=== PATIENT | male | born 1955 | race Caucasian/White ===

== ENCOUNTER 2016-11-09 13:54 | Inpatient (IN) | payer BC ==
[~2016-11-09] VITALS: Ht 175.3 cm; Wt 106.1 kg
[2016-11-09] VITALS (7 sets, daily range): BP systolic 97–117; BP diastolic 53–65
[2016-11-09] MEDS ORDERED: ESOM40CA PO (15:35)
[2016-11-09] MEDS ORDERED: TAMS0.4C2 PO (15:35)
[2016-11-09] MEDS ORDERED: POTA20TA82 PO (15:35)
[2016-11-09] MEDS ORDERED: ASPI81TA2 PO (15:35)
[2016-11-09] MEDS ORDERED: ATOR40TA59 PO (15:35)
[2016-11-09] MEDS ORDERED: FURO40TA4 PO (15:35)
[2016-11-09] MEDS ORDERED: MOME17SP NS (15:35)
[2016-11-09] MEDS ORDERED: LISI2.5T PO (15:35)
[2016-11-09] MEDS ORDERED: SENN1TAB7 PO (15:35)
[2016-11-09] MEDS ORDERED: CARV12.52 PO (15:35)
[2016-11-09] MEDS ORDERED: HYDROcodone/APAP 5/325MG 1 TAB TABLET PO PRN (16:00)
[2016-11-09] MEDS ORDERED: 0.9 % SODIUM CHLORIDE 10 ML DISP.SYRIN. IV PRN (16:00)
[2016-11-09] MEDS: CARVEDILOL 12.5 MG TABLET. PO SCH (17:00)
[2016-11-09] MEDS: FUROSEMIDE 40 MG/4 ML VIAL. IVP SCH (17:03)
--- NOTE | 2016-11-09 17:09 | PDOC2 ---
CARDIAC CONSULT DATE OF CONSULT Date of Consult DATE: 11/09/16 TIME: 16:20 REASON FOR CONSULT Reason for Consult: Possible CHF, SOA REFERRING PHYSICIAN Referring Physician: Appl SOURCE Source: Caregiver (spouse), Chart review, Patient HISTORY OF PRESENT ILLNESS HISTORY OF PRESENT ILLNESS This is a pleasant 61 yo male admitted for complains of increasing leg swelling and mild SOA. Reports that >2 weeks ago he and his have noticed that his legs have become more edematous. He has been drinking about 2-3 liters approximate of fluids daily, also has been controlling his salt intake but unable to to tell me how much, has been having difficulty urinating and was noted recently with urinary retention. Denies any changes in activity tolerance but has noted to be slightly SOA that usual. No complains of any chest pain, palpitations. Positive for orthopnea, PND. His lasix has been adjusted and increased in the last 2 weeks to get ahead of his symptoms but finally went to his PCP and was told to get admitted to the hospital prompting direct admission today. He has been compliant with his medications but continues to smoke tobacco. In addition he is not on any COPD regimen but was told in the past that he has mild COPD his cough has been increasing but mainly due to upper respiratory congestion likely from uncontrolled allergies based from spouse with increasing clear to white sputum and today it was greenish. No fever or chills. He has not been checking his BP or checking his weight. PAST MEDICAL HISTORY Cardiovascular: CAD, CHF (cardiomyopathy), HTN Pulmonary: COPD CENTRAL NERVOUS SYSTEM: Other (No pertinent history) GI: GERD Heme/Onc: No pertinent hx Hepatobiliary: No pertinent hx Psych: No pertinent hx Musculoskeletal: low back pain, Osteoarthritis, Other (meniscus tear) Rheumatologic: No pertinent hx Infectious disease: No pertinent hx ENT: Allergic Rhinitis Renal/: Benign prostatic enlarg. Endocrine: No pertinent hx Dermatology: No pertinent hx PAST SURGICAL HISTORY Past Surgical History: Pacemaker (AICD medtronic placed 6 months after CABG), Arthroscopy (bilateral meniscus repair), CABG (x3 3 yrs ago with graft sites to left leg), Hernia Repair, Other (vasectomy reversal) FAMILY HISTORY Family History: Diabetes, Other (strong family hx of clotting disorderes, DVT/ PE---- he was tested during his CABG w/u and negative for inherent clotting disorders) SOCIAL HISTORY Smoke: <1 pack per day (at prime used to smoke 2 ppd total >35 pk yr) ALCOHOL: none Drugs: None Lives: with Family ALLERGIES ALLERGIES: Coded Allergies: No Known Drug Allergies (Unverified , 11/09/16) ROS Review of System 14 point ROS evaluated with pertinent positives noted per HPI PHYSICAL EXAM General: Alert, Oriented X3, Cooperative, No acute distress HEENT: Atraumatic, Mucous membr. moist/pink Lungs: Other (left basilar crackles) Heart: Regular rate, Normal S1, Normal S2, Other (distant heart sounds) Extremities: No cyanosis, Other (2+ bilateral LE pitting edema) Skin: No breakdown, No significant lesion Neuro: Normal speech, Sensation intact Psych/Mental Status: Mental status NL, Mood NL MUSCULOSKELETAL: Osteoarthritic changes both hands VITALS VITALS Vital Signs Date Time Temp Pulse Resp B/P (MAP) Pulse Ox O2 Delivery O2 Flow Rate FiO2 11/09/16 15:28 98.3 91 20 99/58 (72) 97 Room Air 98.3 ASSESSMENT/PLAN ASSESSMENT/PLAN 1. Acute on chronic systolic CHF: orthopnea otherwise not in distress 2. ICM: AICD Medtronic in place 3. CAD: CABG x3 3 yrs ago, done in [facility], follow with Dr. Spear seen last 06/2016. CP free. 4. Suspect GEOVANNY with associated urinary retention 5. Mild COPD exacerbation 6. Strong suspicion of LORENA: positive for apnea and snoring per with physical features. 7. HTN: low end 8. HLP Recommendations 1. Multiple labs pending 2. CXR, TTE, EKG 3. Cardiac enzymes 4. Continue secondary prevention and home regimen per BP tolerance. Lasix therapy. and martinez now in place 5. 2 L FR, smoking cessation 6. Will interrogate device and will note thoracic impedance 7. Obtain [facility] records. 8. Discussed lifestyle modifications, including weight loss, diet, encouraged home BP and weight monitoring 9. Place on tele monitor. 10 Will need LORENA workup as outpt, further recommendation pending test results Problems: CELESTINA SO APRN November 09, 2016 17:08
[2016-11-09 18:34] LABS: BILIRUBIN,URINE NEGATIVE (NEG); GLUCOSE,URINE NEGATIVE (NEG); NITRITE,URINE NEGATIVE (NEG); PH,URINE 6.5; PROTEIN,URINE NEGATIVE (NEG-TRACE); UROBILINOGEN,URINE 0.2 mg/dL (0.2 mg/dL)
[2016-11-09 18:41] LABS: BACTERIA,URINE 0 /HPF (0-FEW); WBC,URINE 0 /HPF (0-4)
[2016-11-09 18:55] LABS: BASO # 0.1 x10^3/uL (0.0-0.2); BASO % 1 % (0-3); EOS % 2 % (0-3); HEMATOCRIT 21.6 % (39.0-53.0); LYMPH # 3.6 x10^3/uL (1.0-4.8); LYMPH % 24 % (24-48); MEAN CORPUSCULAR HEMOGLOBIN 16 pg (25-35); MEAN CORPUSCULAR HGB CONC 28 g/dL (31-37); MEAN CORPUSCULAR VOLUME 58 fL (79-100); MONO % 7 % (0-9); NEUT % 67 % (31-73); PLATELET COUNT 453 x10^3/uL (140-400); RED BLOOD COUNT 3.76 x10^6/uL (4.30-5.70); RED CELL DISTRIBUTION WIDTH 22.4 % (11.5-14.5)
[2016-11-09 19:09] LABS: ALBUMIN 3.1 g/dL (3.4-5.0); ALBUMIN/GLOBULIN RATIO 0.8 (1.0-1.7); CALCIUM 8.4 mg/dL (8.5-10.1); GFR 76.5; POTASSIUM 3.8 mmol/L (3.5-5.1); TOTAL BILIRUBIN 0.6 mg/dL (0.2-1.0); TOTAL PROTEIN 6.9 g/dL (6.4-8.2)
[2016-11-09] MEDS ORDERED: IVAB5TAB PO (19:21)
[2016-11-09 19:40] LABS: HEMATOCRIT 21.7 % (39.0-53.0)
[2016-11-09 19:49] LABS: ANISOCYTOSIS MOD; HYPOCHROMIA MARKED; MICROCYTOSIS MARKED; PLT ESTIMATE INCREASED (ADEQUATE); POIKILOCYTOSIS SLIGHT
[2016-11-09 19:51] LABS: OVALOCYTES FEW; SCHISTOCYTES OCC; TEAR DROP CELLS OCC
[2016-11-09 19:52] LABS: POLYCHROMASIA SLIGHT
[2016-11-09] MEDS: SENNOSIDES/DOCUSATE 8.6/50MG TABLET. PO SCH (20:35)
--- NOTE | 2016-11-09 20:59 | PDOC ---
GENERAL General: see dictated H&P. Problems: VITAL SIGNS Vital Signs: Vital Signs Date Time Temp Pulse Resp B/P (MAP) Pulse Ox O2 Delivery O2 Flow Rate FiO2 11/09/16 19:44 98.2 94 18 97/53 (68) 95 Room Air 98.2 ALLERGIES Allergies: Allergies Coded Allergies Type Severity Reaction Last Updated Verified No Known Drug Allergies 11/09/16 No MEDS Medications: Current Medications Medications (Trade) Dose Ordered Sig/Edwina Start Time Stop Time Status Last Admin Dose Admin Acetaminophen/ Hydrocodone Bitart (Lortab 5/325) 1 tab PRN Q4HRS PRN 11/09/16 16:00 Aspirin (Children'S Aspirin) 81 mg DAILYWBKFT 11/10/16 08:00 Atorvastatin Calcium (Lipitor) 40 mg QHS 11/09/16 21:00 11/09/16 20:35 40 MG Carvedilol (Coreg) 12.5 mg BIDWMEALS 11/09/16 17:00 Fluticasone Propionate (Flonase) 2 spray DAILY 11/10/16 09:00 Furosemide (Lasix) 40 mg BID94 11/09/16 16:30 11/09/16 17:03 40 MG Lisinopril (Prinivil) 2.5 mg DAILY 11/10/16 09:00 Pantoprazole Sodium (Protonix) 40 mg DAILYAC 11/10/16 07:30 Potassium Chloride (Klor-Con) 20 meq DAILYWBKFT 11/10/16 08:00 Senna/Docusate Sodium (Senna Plus) 2 tab BID 11/09/16 21:00 11/09/16 20:35 2 TAB Sodium Chloride (Normal Saline Flush) 3 ml PRN DAILY PRN 11/09/16 16:00 Tamsulosin HCl (Flomax) 0.4 mg DAILY 11/10/16 09:00 LAB Lab: Laboratory Tests Test 11/09/16 18:00 11/09/16 18:40 11/09/16 19:30 Urine Collection Type Unknown Urine Color Yellow Urine Clarity Clear Urine pH 6.5 Urine Specific [place] 1.010 Urine Protein Negative mg/dL (NEG-TRACE) Urine Glucose (UA) Negative mg/dL (NEG) Urine Ketones (Stick) Negative mg/dL (NEG) Urine Blood Small (NEG) Urine Nitrite Negative (NEG) Urine Bilirubin Negative (NEG) Urine Urobilinogen Dipstick 0.2 mg/dL (0.2 mg/dL) Urine Leukocyte Esterase Negative (NEG) Urine RBC 11-20 /HPF (0-2) Urine WBC 0 /HPF (0-4) Urine Squamous Epithelial Cells None /LPF Urine Bacteria 0 /HPF (0-FEW) Urine Hyaline Casts Few /HPF Urine Mucus Slight /LPF White Blood Count 15.0 x10^3/uL (4.0-11.0) Red Blood Count 3.76 x10^6/uL (4.30-5.70) Hemoglobin 6.0 g/dL (13.0-17.5) 6.0 g/dL (13.0-17.5) Hematocrit 21.6 % (39.0-53.0) 21.7 % (39.0-53.0) Mean Corpuscular Volume 58 fL (79-100) Mean Corpuscular Hemoglobin 16 pg (25-35) Mean Corpuscular Hemoglobin Concent 28 g/dL (31-37) 28 g/dL (31-37) Red Cell Distribution Width 22.4 % (11.5-14.5) Platelet Count 453 x10^3/uL (140-400) Neutrophils (%) (Auto) 67 % (31-73) Lymphocytes (%) (Auto) 24 % (24-48) Monocytes (%) (Auto) 7 % (0-9) Eosinophils (%) (Auto) 2 % (0-3) Basophils (%) (Auto) 1 % (0-3) Neutrophils # (Auto) 10.1 x10^3uL (1.8-7.7) Lymphocytes # (Auto) 3.6 x10^3/uL (1.0-4.8) Monocytes # (Auto) 1.0 x10^3/uL (0.0-1.1) Eosinophils # (Auto) 0.2 x10^3/uL (0.0-0.7) Basophils # (Auto) 0.1 x10^3/uL (0.0-0.2) Platelet Estimate Increased (ADEQUATE) Giant Platelets Polychromasia Slight Hypochromasia Marked Poikilocytosis Slight Anisocytosis Mod Microcytosis Marked Tear Drop Cells Occ Ovalocytes Few Schistocytes Occ Sodium Level 140 mmol/L (136-145) Potassium Level 3.8 mmol/L (3.5-5.1) Chloride Level 102 mmol/L (98-107) Carbon Dioxide Level 28 mmol/L (21-32) Anion Gap 10 (6-14) Blood Urea Nitrogen 15 mg/dL (8-26) Creatinine 1.0 mg/dL (0.7-1.3) Estimated GFR (Cockcroft-Gault) 76.5 BUN/Creatinine Ratio 15 (6-20) Glucose Level 178 mg/dL (70-99) Calcium Level 8.4 mg/dL (8.5-10.1) Magnesium Level 1.8 mg/dL (1.8-2.4) Total Bilirubin 0.6 mg/dL (0.2-1.0) Aspartate Amino Transf (AST/SGOT) 14 U/L (15-37) Alanine Aminotransferase (ALT/SGPT) 21 U/L (16-63) Alkaline Phosphatase 163 U/L (46-116) Total Protein 6.9 g/dL (6.4-8.2) Albumin 3.1 g/dL (3.4-5.0) Albumin/Globulin Ratio 0.8 (1.0-1.7) Thyroid Stimulating Hormone (TSH) 1.364 uIU/mL (0.358-3.74) MAGGIE FRIAS MD November 09, 2016 20:59
[2016-11-09] MEDS ORDERED: ATORVASTATIN CALCIUM 40 MG TABLET. PO SCH (21:00)
[2016-11-10] VITALS (14 sets, daily range): BP systolic 93–131; BP diastolic 47–67
--- NOTE | 2016-11-10 00:54 | HP ---
ADMIT DATE: 11/09/2016 CHIEF COMPLAINT AND HISTORY OF PRESENT ILLNESS: This is a 61-year-old white male who is followed in our office. The patient was seen on the day prior to admission, felt to be in congestive heart failure and was having difficulty urinating, was catheterized in the office with 1200 mL return. He refused admission and his Lasix was increased up to 80 mg and was instructed to double his Flomax from 0.4 to 0.8 and to follow up the following day. On the following day, the patient had lost a pound, had been able to urinate, he ____ adequately overnight, but was having troubles again, still short of breath and bibasilar crackles, clinically had congestive heart failure. He is known to have cardiomyopathy with an ICD and the patient was admitted to the hospital ____ to deal with apparent congestive heart failure ____ urinary retention. PAST MEDICAL HISTORY: Remarkable for CABG in 2013 done in [facility] and has a history of ischemic cardiomyopathy, coronary artery disease, arthritis, ICD placement, systolic heart failure as well as BPH. MEDICATIONS: Include aspirin 81 mg daily, Lipitor 40 daily, carvedilol 12.5 b.i.d., Nexium 40 daily, furosemide 40 mg daily, lisinopril 1 tablet 2.5 daily, Nasonex nasal spray 2 sprays each nostril daily, potassium chloride 20 mEq daily, Senokot-S 8.6/50 mg 2 tablets by mouth twice a day and tamsulosin or Flomax was just increased to 0.8 from 0.4 daily. ALLERGIES: Has no known drug allergies. SOCIAL HISTORY: Noncontributory. FAMILY HISTORY: Noncontributory. REVIEW OF SYSTEMS: As mentioned above. PHYSICAL EXAMINATION: GENERAL: He is a well-developed, well-nourished white male, who appears relatively comfortable at rest. VITAL SIGNS: Revealed a blood pressure of 100/50. He is afebrile. HEAD, EYES, EARS, NOSE AND THROAT: Unremarkable. NECK: Supple without bruit, thyromegaly. CHEST: Reveals bibasilar crackles. HEART: Regular rate and rhythm without S3, S4 or murmur. ABDOMEN: Soft, nontender without hepatosplenomegaly or mass. EXTREMITIES: Revealed 2+ edema. NEUROLOGIC: He is intact. IMPRESSION: Congestive heart failure and urinary retention as described above in a patient with multiple other problems listed above. PLAN: The patient has been admitted. Bladder scan will be done with catheter placement as necessary. Labs will be checked, chest x-ray, echocardiogram and EKG. Cardiology will be consulted and the patient will be monitored, diuresed, managed and treated appropriately. MAGGIE FRIAS MD DR: EUGENE/thuan JOB#: [id number] / [id number]
[2016-11-10] MEDS ORDERED: ASPIRIN CHEWABLE 81 MG TABLET. PO SCH (08:00)
[2016-11-10] MEDS: CARVEDILOL 12.5 MG TABLET. PO SCH ×2 (08:00→16:42)
[2016-11-10] MEDS: FLUTICASONE 50MCG/NASAL SPRAY 16GM BOTTLE. NS SCH (08:11)
[2016-11-10] MEDS: FUROSEMIDE 40 MG/4 ML VIAL. IVP SCH (08:12)
[2016-11-10] MEDS: PANTOPRAZOLE 40 MG TABLET.DR. PO SCH (08:12)
[2016-11-10] MEDS: LISINOPRIL 2.5 MG TABLET PO SCH (08:13)
[2016-11-10] MEDS: POTASSIUM CHLORIDE 20 MEQ TABLET.ER. PO SCH (08:14)
[2016-11-10] MEDS: SENNOSIDES/DOCUSATE 8.6/50MG TABLET. PO SCH ×2 (08:15→20:45)
--- NOTE | 2016-11-10 08:20 | RAD ---
Chest, 2 views, 11/09/2016: History: Shortness of breath, congestive heart failure. No previous chest radiographs are available at this time for comparison purposes. There has been a previous median sternotomy. A left-sided transvenous pacemaker is in place with a single lead extending into the right ventricle. The heart is mildly enlarged. The pulmonary vascularity is within normal limits. No pulmonary infiltrates are seen. There is no evidence of pleural fluid. IMPRESSION: 1. Mild cardiomegaly. 2. No acute cardiopulmonary abnormality is detected.
[2016-11-10 08:23] LABS: BASO # 0.1 x10^3/uL (0.0-0.2); BASO % 1 % (0-3); EOS % 2 % (0-3); HEMATOCRIT 23.2 % (39.0-53.0); LYMPH # 2.4 x10^3/uL (1.0-4.8); LYMPH % 17 % (24-48); MEAN CORPUSCULAR HEMOGLOBIN 17 pg (25-35); MEAN CORPUSCULAR HGB CONC 29 g/dL (31-37); MEAN CORPUSCULAR VOLUME 59 fL (79-100); MONO % 7 % (0-9); NEUT % 73 % (31-73); PLATELET COUNT 437 x10^3/uL (140-400); RED BLOOD COUNT 3.91 x10^6/uL (4.30-5.70); RED CELL DISTRIBUTION WIDTH 25.6 % (11.5-14.5); WHITE BLOOD COUNT 14.2 x10^3/uL (4.0-11.0)
[2016-11-10 08:41] LABS: HDLC 18 mg/dL (40-60); HEMOGLOBIN 6.7 g/dL (13.0-17.5); TRIGLYCERIDES 131 mg/dL (0-150)
[2016-11-10] MEDS ORDERED: TAMSULOSIN 0.4 MG CAP.ER.24H. PO SCH (09:00)
[2016-11-10 09:02] LABS: CALCIUM 8.3 mg/dL (8.5-10.1); CREATININE 0.8 mg/dL (0.7-1.3); GFR 98.9; MAGNESIUM 1.9 mg/dL (1.8-2.4); POTASSIUM 3.9 mmol/L (3.5-5.1)
[2016-11-10 09:05] LABS: CHOLESTEROL < 50 mg/dL (0-200); NON-HDL CHOLESTEROL 32 mg/dL (0-129)
[2016-11-10 09:16] LABS: % SAT IRON 9 % (15-34); IRON,SERUM 45 ug/dL (65-175)
--- NOTE | 2016-11-10 10:36 | PDOC ---
PROGRESS NOTES Subjective Subjective Pt. with urinary retention Objective Objective Vital Signs Date Time Temp Pulse Resp B/P (MAP) Pulse Ox O2 Delivery O2 Flow Rate FiO2 11/10/16 08:13 91 107/47 11/10/16 08:00 Room Air 11/10/16 07:22 99.3 20 94 99.3 Intake and Output 11/10/16 07:00 Intake Total 2264 ml Output Total 2950 ml Balance -686 ml Intake Oral 1700 ml Blood Product IV Normal Saline Flush 564 ml Output Urine Total 2950 ml Physical Exam Physical Exam martinez in place urine clear 1200 cc in bladder at time of martinez placement Plan Plan of Care Keep martinez in place flomax to BID Follow up with regular urologist Dr. Carlos Olivarez of [facility] in next 1-2 weeks for voiding trial Comment Review of Relevant I have reviewed the following items rui (where applicable) has been applied. Labs Laboratory Tests Test 11/09/16 18:00 11/09/16 18:40 11/09/16 19:30 11/10/16 07:20 Urine Collection Type Unknown Urine Color Yellow Urine Clarity Clear Urine pH 6.5 Urine Specific [place] 1.010 Urine Protein Negative mg/dL (NEG-TRACE) Urine Glucose (UA) Negative mg/dL (NEG) Urine Ketones (Stick) Negative mg/dL (NEG) Urine Blood Small (NEG) Urine Nitrite Negative (NEG) Urine Bilirubin Negative (NEG) Urine Urobilinogen Dipstick 0.2 mg/dL (0.2 mg/dL) Urine Leukocyte Esterase Negative (NEG) Urine RBC 11-20 /HPF (0-2) Urine WBC 0 /HPF (0-4) Urine Squamous Epithelial Cells None /LPF Urine Bacteria 0 /HPF (0-FEW) Urine Hyaline Casts Few /HPF Urine Mucus Slight /LPF White Blood Count 15.0 x10^3/uL (4.0-11.0) 14.2 x10^3/uL (4.0-11.0) Red Blood Count 3.76 x10^6/uL (4.30-5.70) 3.91 x10^6/uL (4.30-5.70) Hemoglobin 6.0 g/dL (13.0-17.5) 6.0 g/dL (13.0-17.5) 6.7 g/dL (13.0-17.5) Hematocrit 21.6 % (39.0-53.0) 21.7 % (39.0-53.0) 23.2 % (39.0-53.0) Mean Corpuscular Volume 58 fL (79-100) 59 fL (79-100) Mean Corpuscular Hemoglobin 16 pg (25-35) 17 pg (25-35) Mean Corpuscular Hemoglobin Concent 28 g/dL (31-37) 28 g/dL (31-37) 29 g/dL (31-37) Red Cell Distribution Width 22.4 % (11.5-14.5) 25.6 % (11.5-14.5) Platelet Count 453 x10^3/uL (140-400) 437 x10^3/uL (140-400) Neutrophils (%) (Auto) 67 % (31-73) 73 % (31-73) Lymphocytes (%) (Auto) 24 % (24-48) 17 % (24-48) Monocytes (%) (Auto) 7 % (0-9) 7 % (0-9) Eosinophils (%) (Auto) 2 % (0-3) 2 % (0-3) Basophils (%) (Auto) 1 % (0-3) 1 % (0-3) Neutrophils # (Auto) 10.1 x10^3uL (1.8-7.7) 10.5 x10^3uL (1.8-7.7) Lymphocytes # (Auto) 3.6 x10^3/uL (1.0-4.8) 2.4 x10^3/uL (1.0-4.8) Monocytes # (Auto) 1.0 x10^3/uL (0.0-1.1) 1.0 x10^3/uL (0.0-1.1) Eosinophils # (Auto) 0.2 x10^3/uL (0.0-0.7) 0.2 x10^3/uL (0.0-0.7) Basophils # (Auto) 0.1 x10^3/uL (0.0-0.2) 0.1 x10^3/uL (0.0-0.2) Platelet Estimate Increased (ADEQUATE) Giant Platelets Polychromasia Slight Hypochromasia Marked Poikilocytosis Slight Anisocytosis Mod Microcytosis Marked Tear Drop Cells Occ Ovalocytes Few Schistocytes Occ Sodium Level 140 mmol/L (136-145) 142 mmol/L (136-145) Potassium Level 3.8 mmol/L (3.5-5.1) 3.9 mmol/L (3.5-5.1) Chloride Level 102 mmol/L (98-107) 104 mmol/L (98-107) Carbon Dioxide Level 28 mmol/L (21-32) 27 mmol/L (21-32) Anion Gap 10 (6-14) 11 (6-14) Blood Urea Nitrogen 15 mg/dL (8-26) 13 mg/dL (8-26) Creatinine 1.0 mg/dL (0.7-1.3) 0.8 mg/dL (0.7-1.3) Estimated GFR (Cockcroft-Gault) 76.5 98.9 BUN/Creatinine Ratio 15 (6-20) Glucose Level 178 mg/dL (70-99) 129 mg/dL (70-99) Calcium Level 8.4 mg/dL (8.5-10.1) 8.3 mg/dL (8.5-10.1) Magnesium Level 1.8 mg/dL (1.8-2.4) 1.9 mg/dL (1.8-2.4) Total Bilirubin 0.6 mg/dL (0.2-1.0) Aspartate Amino Transf (AST/SGOT) 14 U/L (15-37) Alanine Aminotransferase (ALT/SGPT) 21 U/L (16-63) Alkaline Phosphatase 163 U/L (46-116) Total Protein 6.9 g/dL (6.4-8.2) Albumin 3.1 g/dL (3.4-5.0) Albumin/Globulin Ratio 0.8 (1.0-1.7) Thyroid Stimulating Hormone (TSH) 1.364 uIU/mL (0.358-3.74) Iron Level 45 ug/dL (65-175) Total Iron Binding Capacity 482 ug/dL (250-450) Iron Saturation 9 % (15-34) Troponin I Quantitative < 0.017 ng/mL (0.000-0.055) GQ-Fhy-D-Type Natriuretic Peptide 449 pg/mL (0-124) Triglycerides Level 131 mg/dL (0-150) Cholesterol Level < 50 mg/dL (0-200) LDL Cholesterol, Calculated mg/dL (0-100) VLDL Cholesterol, Calculated mg/dL (0-40) Non-HDL Cholesterol Calculated 32 mg/dL (0-129) HDL Cholesterol 18 mg/dL (40-60) Cholesterol/HDL Ratio Laboratory Tests Test 11/09/16 18:00 11/09/16 18:40 11/09/16 19:30 11/10/16 07:20 Urine Collection Type Unknown Urine Color Yellow Urine Clarity Clear Urine pH 6.5 Urine Specific [place] 1.010 Urine Protein Negative mg/dL (NEG-TRACE) Urine Glucose (UA) Negative mg/dL (NEG) Urine Ketones (Stick) Negative mg/dL (NEG) Urine Blood Small (NEG) Urine Nitrite Negative (NEG) Urine Bilirubin Negative (NEG) Urine Urobilinogen Dipstick 0.2 mg/dL (0.2 mg/dL) Urine Leukocyte Esterase Negative (NEG) Urine RBC 11-20 /HPF (0-2) Urine WBC 0 /HPF (0-4) Urine Squamous Epithelial Cells None /LPF Urine Bacteria 0 /HPF (0-FEW) Urine Hyaline Casts Few /HPF Urine Mucus Slight /LPF White Blood Count 15.0 x10^3/uL (4.0-11.0) 14.2 x10^3/uL (4.0-11.0) Red Blood Count 3.76 x10^6/uL (4.30-5.70) 3.91 x10^6/uL (4.30-5.70) Hemoglobin 6.0 g/dL (13.0-17.5) 6.0 g/dL (13.0-17.5) 6.7 g/dL (13.0-17.5) Hematocrit 21.6 % (39.0-53.0) 21.7 % (39.0-53.0) 23.2 % (39.0-53.0) Mean Corpuscular Volume 58 fL (79-100) 59 fL (79-100) Mean Corpuscular Hemoglobin 16 pg (25-35) 17 pg (25-35) Mean Corpuscular Hemoglobin Concent 28 g/dL (31-37) 28 g/dL (31-37) 29 g/dL (31-37) Red Cell Distribution Width 22.4 % (11.5-14.5) 25.6 % (11.5-14.5) Platelet Count 453 x10^3/uL (140-400) 437 x10^3/uL (140-400) Neutrophils (%) (Auto) 67 % (31-73) 73 % (31-73) Lymphocytes (%) (Auto) 24 % (24-48) 17 % (24-48) Monocytes (%) (Auto) 7 % (0-9) 7 % (0-9) Eosinophils (%) (Auto) 2 % (0-3) 2 % (0-3) Basophils (%) (Auto) 1 % (0-3) 1 % (0-3) Neutrophils # (Auto) 10.1 x10^3uL (1.8-7.7) 10.5 x10^3uL (1.8-7.7) Lymphocytes # (Auto) 3.6 x10^3/uL (1.0-4.8) 2.4 x10^3/uL (1.0-4.8) Monocytes # (Auto) 1.0 x10^3/uL (0.0-1.1) 1.0 x10^3/uL (0.0-1.1) Eosinophils # (Auto) 0.2 x10^3/uL (0.0-0.7) 0.2 x10^3/uL (0.0-0.7) Basophils # (Auto) 0.1 x10^3/uL (0.0-0.2) 0.1 x10^3/uL (0.0-0.2) Platelet Estimate Increased (ADEQUATE) Giant Platelets Polychromasia Slight Hypochromasia Marked Poikilocytosis Slight Anisocytosis Mod Microcytosis Marked Tear Drop Cells Occ Ovalocytes Few Schistocytes Occ Sodium Level 140 mmol/L (136-145) 142 mmol/L (136-145) Potassium Level 3.8 mmol/L (3.5-5.1) 3.9 mmol/L (3.5-5.1) Chloride Level 102 mmol/L (98-107) 104 mmol/L (98-107) Carbon Dioxide Level 28 mmol/L (21-32) 27 mmol/L (21-32) Anion Gap 10 (6-14) 11 (6-14) Blood Urea Nitrogen 15 mg/dL (8-26) 13 mg/dL (8-26) Creatinine 1.0 mg/dL (0.7-1.3) 0.8 mg/dL (0.7-1.3) Estimated GFR (Cockcroft-Gault) 76.5 98.9 BUN/Creatinine Ratio 15 (6-20) Glucose Level 178 mg/dL (70-99) 129 mg/dL (70-99) Calcium Level 8.4 mg/dL (8.5-10.1) 8.3 mg/dL (8.5-10.1) Magnesium Level 1.8 mg/dL (1.8-2.4) 1.9 mg/dL (1.8-2.4) Total Bilirubin 0.6 mg/dL (0.2-1.0) Aspartate Amino Transf (AST/SGOT) 14 U/L (15-37) Alanine Aminotransferase (ALT/SGPT) 21 U/L (16-63) Alkaline Phosphatase 163 U/L (46-116) Total Protein 6.9 g/dL (6.4-8.2) Albumin 3.1 g/dL (3.4-5.0) Albumin/Globulin Ratio 0.8 (1.0-1.7) Thyroid Stimulating Hormone (TSH) 1.364 uIU/mL (0.358-3.74) Iron Level 45 ug/dL (65-175) Total Iron Binding Capacity 482 ug/dL (250-450) Iron Saturation 9 % (15-34) Troponin I Quantitative < 0.017 ng/mL (0.000-0.055) PQ-Sth-B-Type Natriuretic Peptide 449 pg/mL (0-124) Triglycerides Level 131 mg/dL (0-150) Cholesterol Level < 50 mg/dL (0-200) LDL Cholesterol, Calculated mg/dL (0-100) VLDL Cholesterol, Calculated mg/dL (0-40) Non-HDL Cholesterol Calculated 32 mg/dL (0-129) HDL Cholesterol 18 mg/dL (40-60) Cholesterol/HDL Ratio Medications Current Medications Sodium Chloride (Normal Saline Flush) 3 ml PRN DAILY PRN IV AFTER MEDS AND BLOOD DRAWS; Start 11/09/16 at 16:00 Acetaminophen/ Hydrocodone Bitart (Lortab 5/325) 1 tab PRN Q4HRS PRN PO MILD PAIN; Start 11/09/16 at 16:00 Furosemide (Lasix) 40 mg BID94 IVP Last administered on 11/10/16 08:12; Start 11/09/16 at 16:30 Aspirin (Children'S Aspirin) 81 mg DAILYWBKFT PO Last administered on 08:14; Start 11/10/16 at 08:00; Stop 11/10/16 at 08:25; Status DC Atorvastatin Calcium (Lipitor) 40 mg QHS PO Last administered on 11/09/16 20: 35; Start 11/09/16 at 21:00 Carvedilol (Coreg) 12.5 mg BIDWMEALS PO ; Start 11/09/16 at 17:00 Lisinopril (Prinivil) 2.5 mg DAILY PO Last administered on 11/10/16 08:13; Start 11/10/16 at 09:00 Senna/Docusate Sodium (Senna Plus) 2 tab BID PO Last administered on 11/10/16 08:15; Start 11/09/16 at 21:00 Tamsulosin HCl (Flomax) 0.4 mg DAILY PO Last administered on 11/10/16 08:15; Start 11/10/16 at 09:00 Pantoprazole Sodium (Protonix) 40 mg DAILYAC PO Last administered on 11/10/16 08:12; Start 11/10/16 at 07:30 Fluticasone Propionate (Flonase) 2 spray DAILY NS Last administered on 08:11; Start 11/10/16 at 09:00 Potassium Chloride (Klor-Con) 20 meq DAILYWBKFT PO Last administered on 08:14; Start 11/10/16 at 08:00 Active Scripts Active Reported Corlanor (Ivabradine HCl) 5 Mg Tablet 5 Mg PO BID Tamsulosin Hcl 0.4 Mg Cap.er.24h 1 Cap PO DAILY Senna-Docusate Sodium Tablet (Sennosides/Docusate Sodium) 1 Each Tablet 2 Each PO BID Potassium Chloride 20 Meq Tablet.er 20 Meq PO DAILY Nasonex (Mometasone Furoate) 17 Gm [place].pump 2 [place] NS DAILY Lisinopril 2.5 Mg Tablet 1 Tab PO DAILY Furosemide 40 Mg Tablet 0.5 Tab PO DAILY Nexium Capsule (Esomeprazole Magnesium) 40 Mg Capsule.dr 1 Cap PO DAILY Carvedilol 12.5 Mg Tablet 1 Tab PO BID Atorvastatin Calcium 40 Mg Tablet 1 Tab PO DAILY Aspirin 81 Mg Tab.chew 1 Tab PO DAILY Vitals/I & O Vital Sign - Last 24 Hours 11/09/16 11/09/16 11/09/16 11/09/16 15:26 15:28 15:30 17:00 Temp 98.3 98.3 98.3 98.3 Pulse 91 91 91 Resp 20 20 B/P (MAP) 99/58 (72) 99/58 (72) 99/58 Pulse Ox 97 97 O2 Delivery Room Air Room Air Room Air 11/09/16 11/09/16 11/09/16 11/09/16 19:44 20:00 22:35 22:56 Temp 98.2 98.1 98.1 98.2 98.1 98.1 Pulse 94 95 91 Resp 18 16 24 B/P (MAP) 97/53 (68) 112/58 117/56 Pulse Ox 95 O2 Delivery Room Air Room Air 11/09/16 11/09/16 11/10/16 11/10/16 23:58 23:59 00:58 02:08 Temp 98.1 98.0 97.9 98.1 98.1 98.0 97.9 98.1 Pulse 95 87 93 85 Resp 20 16 20 20 B/P (MAP) 107/65 107/65 (79) 93/51 131/65 (87) Pulse Ox 93 94 O2 Delivery Room Air Room Air 11/10/16 11/10/16 11/10/16 07:22 08:00 08:13 Temp 99.3 99.3 Pulse 91 91 Resp 20 B/P (MAP) 107/47 (67) 107/47 Pulse Ox 94 O2 Delivery Room Air Room Air Intake and Output 11/09/16 11/09/16 11/10/16 15:00 23:00 07:00 Intake Total 1184 ml 1080 ml Output Total 1600 ml 1350 ml Balance -416 ml -270 ml KIMI ALONZO MD November 10, 2016 10:36
--- NOTE | 2016-11-10 11:40 | CARD ---
APPROVED REPORT EXAM: Two-dimensional and M-mode echocardiogram with Doppler and color Doppler. Other Information Quality : Average Rhythm : NSR INDICATION Dyspnea Congestive Heart Failure 2D DIMENSIONS RVDd3.8 (2.9-3.5cm)Left Atrium(2D)5.0 (1.6-4.0cm) IVSd1.3 (0.7-1.1cm)Aortic Root(2D)3.5 (2.0-3.7cm) LVDd6.0 (3.9-5.9cm)LVOT Diameter2.1 (1.8-2.4cm) PWd1.3 (0.7-1.1cm)LVDs4.2 (2.5-4.0cm) FS (%) 20.8 %SV105.2 ml LVEF(%)47.5 (>50%) Aortic Valve AoV Peak Juan Ramon.156.0cm/sAoV VTI28.4cm AO Peak GR.9.7mmHgLVOT Peak Juan Ramon.110.5cm/s LVOT VTI 21.13cmAO Mean GR.5mmHg CECE (VMAX)2.23mp6PIO (VTI)2.68cm2 Mitral Valve MV E Gyywxpph934.5cm/sMV DECEL PZFM264sa MV A Jndckwcb347.9cm/sMV AMV40qc E/A Ratio1.1MV A [place]57xu MVA (PHT)4.16cm2 TDI E/Lateral E'8.4E/Medial E'9.0 Pulmonary Valve PV Peak Qbgxfzlm802.6cm/sPV Peak Grad.7mmHg RVOT VTI18.9cm Tricuspid Valve TR P. Ykdhspey663nk/sRAP AOJGLKLH4upDb TR Peak Gr.23lwKaEQIT61ezIe Pulmonary Vein S1 Vuxyjymb16.0cm/sD2 Gcgkhghu28.3cm/s LEFT VENTRICLE The Left Ventricle is borderline dilated. There is borderline to mild concentric left ventricular hyp ertrophy. Left ventricle systolic function is mildly decreasedl. The Ejection Fraction is 40-45%. The re is global hypokinesis of the left ventricle. Septal motion consistent with conduction abnormality. Tissue Doppler imaging reveals moderate left ventricular diastolic dysfunction. There is no ventricu lar septal defect visualized. RIGHT VENTRICLE The right ventricle is borderline dilated. The right ventricular systolic function is normal. There i s a pacemaker lead seen in the RV/RA. ATRIA The left atrium size is normal. The right atrium size is normal. The interatrial septum is intact wit h no evidence for an atrial septal defect or patent foramen ovale as noted on 2-D or Doppler imaging. AORTIC VALVE The aortic valve is normal in structure and function. The aortic valve is trileaflet. Doppler and Col or Flow revealed no significant aortic regurgitation. There is no significant aortic valvular stenosi s. MITRAL VALVE The mitral valve leaflets are thickened. There is no mitral valve stenosis. Doppler and Color Flow re vealed mild mitral regurgitation. TRICUSPID VALVE The tricuspid valve is not well visualized. Doppler and Color Flow revealed mild tricuspid regurgitat ion. The PA pressure was estimated at 28 mmHg. There is no tricuspid valve stenosis. PULMONIC VALVE The pulmonic valve is not well visualized. Doppler and Color Flow revealed no pulmonic valvular regur gitation. There is no pulmonic valvular stenosis. GREAT VESSELS The aortic root is normal in size. Normal pulmonary venous flow (Doppler). The IVC is normal in size and collapses >50% with inspiration. PERICARDIAL EFFUSION There is no evidence of significant pericardial effusion. Critical Notification Critical Value: No <Conclusion> There is global hypokinesis of the left ventricle. Septal motion consistent with conduction abnormali ty. Tissue Doppler imaging reveals moderate left ventricular diastolic dysfunction. There is a pacemaker lead seen in the RV/RA.
--- NOTE | 2016-11-10 13:23 | PDOC ---
CARDIO Progress Notes Date and Time Date of Service 11/10/2016 Time of Evaluation 1200 Subjective Subjective: No Chest Pain, No shortness of breath, No Palpitations, No Dizziness, Other (remains orthopneic currently at high fowlers) Vitals Vitals Vital Signs Date Time Temp Pulse Resp B/P (MAP) Pulse Ox O2 Delivery O2 Flow Rate FiO2 11/10/16 12:27 98.0 95 18 113/67 (82) Room Air 98.0 11/10/16 10:25 95 Weight Weight [ ] Input and Output Intake and Output Intake and Output 11/10/16 07:00 Intake Total 2264 ml Output Total 2950 ml Balance -686 ml Intake Oral 1700 ml Blood Product IV Normal Saline Flush 564 ml Output Urine Total 2950 ml Laboratory Labs Laboratory Tests Test 11/09/16 18:00 11/09/16 18:40 11/09/16 19:30 11/10/16 07:20 Urine Collection Type Unknown Urine Color Yellow Urine Clarity Clear Urine pH 6.5 Urine Specific [place] 1.010 Urine Protein Negative mg/dL (NEG-TRACE) Urine Glucose (UA) Negative mg/dL (NEG) Urine Ketones (Stick) Negative mg/dL (NEG) Urine Blood Small (NEG) Urine Nitrite Negative (NEG) Urine Bilirubin Negative (NEG) Urine Urobilinogen Dipstick 0.2 mg/dL (0.2 mg/dL) Urine Leukocyte Esterase Negative (NEG) Urine RBC 11-20 /HPF (0-2) Urine WBC 0 /HPF (0-4) Urine Squamous Epithelial Cells None /LPF Urine Bacteria 0 /HPF (0-FEW) Urine Hyaline Casts Few /HPF Urine Mucus Slight /LPF White Blood Count 15.0 x10^3/uL (4.0-11.0) 14.2 x10^3/uL (4.0-11.0) Red Blood Count 3.76 x10^6/uL (4.30-5.70) 3.91 x10^6/uL (4.30-5.70) Hemoglobin 6.0 g/dL (13.0-17.5) 6.0 g/dL (13.0-17.5) 6.7 g/dL (13.0-17.5) Hematocrit 21.6 % (39.0-53.0) 21.7 % (39.0-53.0) 23.2 % (39.0-53.0) Mean Corpuscular Volume 58 fL (79-100) 59 fL (79-100) Mean Corpuscular Hemoglobin 16 pg (25-35) 17 pg (25-35) Mean Corpuscular Hemoglobin Concent 28 g/dL (31-37) 28 g/dL (31-37) 29 g/dL (31-37) Red Cell Distribution Width 22.4 % (11.5-14.5) 25.6 % (11.5-14.5) Platelet Count 453 x10^3/uL (140-400) 437 x10^3/uL (140-400) Neutrophils (%) (Auto) 67 % (31-73) 73 % (31-73) Lymphocytes (%) (Auto) 24 % (24-48) 17 % (24-48) Monocytes (%) (Auto) 7 % (0-9) 7 % (0-9) Eosinophils (%) (Auto) 2 % (0-3) 2 % (0-3) Basophils (%) (Auto) 1 % (0-3) 1 % (0-3) Neutrophils # (Auto) 10.1 x10^3uL (1.8-7.7) 10.5 x10^3uL (1.8-7.7) Lymphocytes # (Auto) 3.6 x10^3/uL (1.0-4.8) 2.4 x10^3/uL (1.0-4.8) Monocytes # (Auto) 1.0 x10^3/uL (0.0-1.1) 1.0 x10^3/uL (0.0-1.1) Eosinophils # (Auto) 0.2 x10^3/uL (0.0-0.7) 0.2 x10^3/uL (0.0-0.7) Basophils # (Auto) 0.1 x10^3/uL (0.0-0.2) 0.1 x10^3/uL (0.0-0.2) Platelet Estimate Increased (ADEQUATE) Giant Platelets Polychromasia Slight Hypochromasia Marked Poikilocytosis Slight Anisocytosis Mod Microcytosis Marked Tear Drop Cells Occ Ovalocytes Few Schistocytes Occ Sodium Level 140 mmol/L (136-145) 142 mmol/L (136-145) Potassium Level 3.8 mmol/L (3.5-5.1) 3.9 mmol/L (3.5-5.1) Chloride Level 102 mmol/L (98-107) 104 mmol/L (98-107) Carbon Dioxide Level 28 mmol/L (21-32) 27 mmol/L (21-32) Anion Gap 10 (6-14) 11 (6-14) Blood Urea Nitrogen 15 mg/dL (8-26) 13 mg/dL (8-26) Creatinine 1.0 mg/dL (0.7-1.3) 0.8 mg/dL (0.7-1.3) Estimated GFR (Cockcroft-Gault) 76.5 98.9 BUN/Creatinine Ratio 15 (6-20) Glucose Level 178 mg/dL (70-99) 129 mg/dL (70-99) Calcium Level 8.4 mg/dL (8.5-10.1) 8.3 mg/dL (8.5-10.1) Magnesium Level 1.8 mg/dL (1.8-2.4) 1.9 mg/dL (1.8-2.4) Total Bilirubin 0.6 mg/dL (0.2-1.0) Aspartate Amino Transf (AST/SGOT) 14 U/L (15-37) Alanine Aminotransferase (ALT/SGPT) 21 U/L (16-63) Alkaline Phosphatase 163 U/L (46-116) Total Protein 6.9 g/dL (6.4-8.2) Albumin 3.1 g/dL (3.4-5.0) Albumin/Globulin Ratio 0.8 (1.0-1.7) Thyroid Stimulating Hormone (TSH) 1.364 uIU/mL (0.358-3.74) Iron Level 45 ug/dL (65-175) Total Iron Binding Capacity 482 ug/dL (250-450) Iron Saturation 9 % (15-34) Troponin I Quantitative < 0.017 ng/mL (0.000-0.055) EB-Yth-V-Type Natriuretic Peptide 449 pg/mL (0-124) Triglycerides Level 131 mg/dL (0-150) Cholesterol Level < 50 mg/dL (0-200) LDL Cholesterol, Calculated mg/dL (0-100) VLDL Cholesterol, Calculated mg/dL (0-40) Non-HDL Cholesterol Calculated 32 mg/dL (0-129) HDL Cholesterol 18 mg/dL (40-60) Cholesterol/HDL Ratio Physical Exam HEENT: Neck Supple W Full Motion Chest: Symmetric LUNGS: Other (diffuse wheeze and crackles) Heart: S1S2, RRR (SR with occasional PVCs) Abdomen: Soft N/T, Other (truncal obesity) Extremities: No Calf Tenderness, Other (trace LE edema) Neurology: alert, oriented, follow commands Assessment Assessment 1. Acute on chronic diastolic/systolic CHF: remains orthopneic otherwise not in distress. Likely accentuated with high output component due to severe anemia 2. Acute anemia: Hgb at 6.0 initially then 6.7 post 1 unit. 2nd unit currently running. w/u per PCP 3. ICM: AICD Medtronic in place (VVI-ICD). Interrogation report revealed no significant arrhythmia with normal functioning device, but with noted optivol elevation 09/11 to 10/23/2016. 9.9 yrs ERL 3. CAD: CABG x3 3 yrs ago, done in , follow with Dr. Spear seen last 06/2016. CP free. 4. AECOPD: per PCP, currently wheezy, defer to PCP 5. Strong suspicion of LORENA: positive for apnea and snoring per with physical features. 7. HTN: controlled 8. HLP: HDL low otherwise, supra-therapeutic lipid levels Recommendations 1. TTE with EF of 40-45% with global hypokinesis to LV and mod diastolic dysfunction. Continue with lasix therapy with timed dosing post transfusion 2. Continue secondary prevention and home regimen per BP tolerance. LDL undetectable, recommend decreasing statin. 3. 2 L FR, smoking cessation, albuterol x1. 4. Additional lasix to be given with blood transfusion 5. Will need LORENA workup as outpt 6. Records reviewed 02/04/2014 CABG DELUCA to LAD, reverse SVG to PDA and D1 01/30/2014 MPI EF 20% 02/03/2014 LHC 02/05/2014 COPD diagnosed 03/01/2014 EF 35% 7. 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
[2016-11-10] MEDS ORDERED: ALBUTEROL SULFATE 2.5 MG/3 ML NEBU. NEB ONE (13:30)
[2016-11-10] MEDS ORDERED: FUROSEMIDE 40 MG/4 ML VIAL. IVP ONE (14:00)
--- NOTE | 2016-11-10 14:50 | RAD ---
Indication urinary retention. Grayscale imaging targeted to the kidneys was performed. The right kidney measures 11.7 x 6.8 x 4.6 cm. No hydronephrosis or solid mass is seen. There is a 17 mm hypoechoic mass, compatible with a cyst, noted associated with the right kidney. The left kidney measures 11.5 x 7.1 x 5.8 cm and appears normal showing no evidence of hydronephrosis or mass. The patient has a Mcginnis catheter in the urinary bladder. The bladder, as a result, is collapsed and poorly evaluated with ultrasound. IMPRESSION: Right renal cyst. No evidence of hydronephrosis seen associated with either kidney
--- NOTE | 2016-11-10 15:42 | EKG ---
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
[2016-11-10] MEDS: ATORVASTATIN CALCIUM 20 MG TABLET PO SCH (20:44)
[2016-11-10] MEDS: TAMSULOSIN 0.4 MG CAP.ER.24H. PO SCH (20:45)
[2016-11-11 03:32] VITALS: BP 111/63
--- NOTE | 2016-11-11 04:26 | CONS ---
DATE OF CONSULTATION: 11/10/2016 LOCATION: The patient is in room 646. HISTORY OF PRESENT ILLNESS: The patient is a very pleasant 61-year-old white male with history of urinary retention. The patient had 1200 mL of urine in his bladder at the time of Mcginnis catheter placement. The patient has a long history of BPH and is on Flomax and had been on Flomax twice a day, but then dropped back to once a day on his own. He is a regular patient of Dr. Carlos Garcia of [facility]. He last saw Dr. Garcia about a year ago. Dr. Garcia has talked with him in the past about medical therapy versus surgical therapy. The patient was having some problems with some coughing and was taking some cough remedies, but is not sure exactly what had put him into full urinary retention. The patient states that normally when he gets checked in the office, he has about a 100 or so in his bladder, postvoid residual. The patient with no prior urologic operations, however. PHYSICAL EXAMINATION: GENITOURINARY: Testes are descended bilaterally. Phallus within normal limits. He has a Mcginnis catheter to gravity drainage secured to the thigh with a StatLock and the urine is grossly clear. RECTAL: He has good sphincter tone. Prostate smooth, nontender, without nodules, overall size 40 grams. PLAN: I talked with the patient concerning his urinary retention. Right now, would recommend keeping the Mcginnis catheter in place to allow the bladder to regain some tone. Increase the Flomax back up to twice a day where he was and then have him follow up with his regular urologist, Dr. Garcia or one of his partners here in the next 1-2 weeks for a voiding trial and then proceed accordingly. I certainly appreciate being allowed to participate in this patient's care. KIMI ALONZO MD DR: KIANNA/thuan JOB#: [id number] / [id number]
[2016-11-11 06:52] LABS: CALCIUM 8.3 mg/dL (8.5-10.1); CREATININE 0.9 mg/dL (0.7-1.3); GFR 86.4; POTASSIUM 3.9 mmol/L (3.5-5.1)
[2016-11-11 07:00] VITALS: BP 103/59
[2016-11-11] MEDS: TAMSULOSIN 0.4 MG CAP.ER.24H. PO SCH ×2 (07:53→20:14)
[2016-11-11] MEDS: PANTOPRAZOLE 40 MG TABLET.DR. PO SCH (07:53)
[2016-11-11] MEDS: LISINOPRIL 2.5 MG TABLET PO SCH (07:54)
[2016-11-11] MEDS: POTASSIUM CHLORIDE 20 MEQ TABLET.ER. PO SCH (07:55)
[2016-11-11] MEDS: FLUTICASONE 50MCG/NASAL SPRAY 16GM BOTTLE. NS SCH (07:55)
[2016-11-11] MEDS: SENNOSIDES/DOCUSATE 8.6/50MG TABLET. PO SCH ×2 (07:55→20:13)
[2016-11-11] MEDS: CARVEDILOL 12.5 MG TABLET. PO SCH (07:55)
--- NOTE | 2016-11-11 08:27 | PDOC ---
PROGRESS NOTES Subjective Subjective Pt. feeling well Objective Objective Vital Signs Date Time Temp Pulse Resp B/P (MAP) Pulse Ox O2 Delivery O2 Flow Rate FiO2 11/11/16 08:00 Room Air 11/11/16 07:55 103 103/59 11/11/16 07:00 98.1 18 94 98.1 Intake and Output 11/11/16 07:00 Intake Total 950 ml Output Total 3275 ml Balance -2325 ml Intake Oral 940 ml Blood Product IV Normal Saline Flush 10 ml Output Urine Total 3275 ml # Bowel Movements 1 Physical Exam Physical Exam martinez in place urine clear good uo sono-no hydro. just renal cyst Plan Plan of Care keep martinez in place flomax BID f/u with regular urologist Dr. Olivarez next 1-2 week for voiding trial Comment Review of Relevant I have reviewed the following items rui (where applicable) has been applied. Labs Laboratory Tests Test 11/09/16 18:00 11/09/16 18:40 11/09/16 19:30 11/10/16 07:20 Urine Collection Type Unknown Urine Color Yellow Urine Clarity Clear Urine pH 6.5 Urine Specific [place] 1.010 Urine Protein Negative mg/dL (NEG-TRACE) Urine Glucose (UA) Negative mg/dL (NEG) Urine Ketones (Stick) Negative mg/dL (NEG) Urine Blood Small (NEG) Urine Nitrite Negative (NEG) Urine Bilirubin Negative (NEG) Urine Urobilinogen Dipstick 0.2 mg/dL (0.2 mg/dL) Urine Leukocyte Esterase Negative (NEG) Urine RBC 11-20 /HPF (0-2) Urine WBC 0 /HPF (0-4) Urine Squamous Epithelial Cells None /LPF Urine Bacteria 0 /HPF (0-FEW) Urine Hyaline Casts Few /HPF Urine Mucus Slight /LPF White Blood Count 15.0 x10^3/uL (4.0-11.0) 14.2 x10^3/uL (4.0-11.0) Red Blood Count 3.76 x10^6/uL (4.30-5.70) 3.91 x10^6/uL (4.30-5.70) Hemoglobin 6.0 g/dL (13.0-17.5) 6.0 g/dL (13.0-17.5) 6.7 g/dL (13.0-17.5) Hematocrit 21.6 % (39.0-53.0) 21.7 % (39.0-53.0) 23.2 % (39.0-53.0) Mean Corpuscular Volume 58 fL (79-100) 59 fL (79-100) Mean Corpuscular Hemoglobin 16 pg (25-35) 17 pg (25-35) Mean Corpuscular Hemoglobin Concent 28 g/dL (31-37) 28 g/dL (31-37) 29 g/dL (31-37) Red Cell Distribution Width 22.4 % (11.5-14.5) 25.6 % (11.5-14.5) Platelet Count 453 x10^3/uL (140-400) 437 x10^3/uL (140-400) Neutrophils (%) (Auto) 67 % (31-73) 73 % (31-73) Lymphocytes (%) (Auto) 24 % (24-48) 17 % (24-48) Monocytes (%) (Auto) 7 % (0-9) 7 % (0-9) Eosinophils (%) (Auto) 2 % (0-3) 2 % (0-3) Basophils (%) (Auto) 1 % (0-3) 1 % (0-3) Neutrophils # (Auto) 10.1 x10^3uL (1.8-7.7) 10.5 x10^3uL (1.8-7.7) Lymphocytes # (Auto) 3.6 x10^3/uL (1.0-4.8) 2.4 x10^3/uL (1.0-4.8) Monocytes # (Auto) 1.0 x10^3/uL (0.0-1.1) 1.0 x10^3/uL (0.0-1.1) Eosinophils # (Auto) 0.2 x10^3/uL (0.0-0.7) 0.2 x10^3/uL (0.0-0.7) Basophils # (Auto) 0.1 x10^3/uL (0.0-0.2) 0.1 x10^3/uL (0.0-0.2) Platelet Estimate Increased (ADEQUATE) Giant Platelets Polychromasia Slight Hypochromasia Marked Poikilocytosis Slight Anisocytosis Mod Microcytosis Marked Tear Drop Cells Occ Ovalocytes Few Schistocytes Occ Sodium Level 140 mmol/L (136-145) 142 mmol/L (136-145) Potassium Level 3.8 mmol/L (3.5-5.1) 3.9 mmol/L (3.5-5.1) Chloride Level 102 mmol/L (98-107) 104 mmol/L (98-107) Carbon Dioxide Level 28 mmol/L (21-32) 27 mmol/L (21-32) Anion Gap 10 (6-14) 11 (6-14) Blood Urea Nitrogen 15 mg/dL (8-26) 13 mg/dL (8-26) Creatinine 1.0 mg/dL (0.7-1.3) 0.8 mg/dL (0.7-1.3) Estimated GFR (Cockcroft-Gault) 76.5 98.9 BUN/Creatinine Ratio 15 (6-20) Glucose Level 178 mg/dL (70-99) 129 mg/dL (70-99) Calcium Level 8.4 mg/dL (8.5-10.1) 8.3 mg/dL (8.5-10.1) Magnesium Level 1.8 mg/dL (1.8-2.4) 1.9 mg/dL (1.8-2.4) Total Bilirubin 0.6 mg/dL (0.2-1.0) Aspartate Amino Transf (AST/SGOT) 14 U/L (15-37) Alanine Aminotransferase (ALT/SGPT) 21 U/L (16-63) Alkaline Phosphatase 163 U/L (46-116) Total Protein 6.9 g/dL (6.4-8.2) Albumin 3.1 g/dL (3.4-5.0) Albumin/Globulin Ratio 0.8 (1.0-1.7) Thyroid Stimulating Hormone (TSH) 1.364 uIU/mL (0.358-3.74) Hemoglobin A1c 6.5 % (4.8-5.6) Iron Level 45 ug/dL (65-175) Total Iron Binding Capacity 482 ug/dL (250-450) Iron Saturation 9 % (15-34) Troponin I Quantitative < 0.017 ng/mL (0.000-0.055) HC-Hgx-R-Type Natriuretic Peptide 449 pg/mL (0-124) Triglycerides Level 131 mg/dL (0-150) Cholesterol Level < 50 mg/dL (0-200) LDL Cholesterol, Calculated mg/dL (0-100) VLDL Cholesterol, Calculated mg/dL (0-40) Non-HDL Cholesterol Calculated 32 mg/dL (0-129) HDL Cholesterol 18 mg/dL (40-60) Cholesterol/HDL Ratio Test 11/11/16 06:00 Sodium Level 139 mmol/L (136-145) Potassium Level 3.9 mmol/L (3.5-5.1) Chloride Level 101 mmol/L (98-107) Carbon Dioxide Level 26 mmol/L (21-32) Anion Gap 12 (6-14) Blood Urea Nitrogen 16 mg/dL (8-26) Creatinine 0.9 mg/dL (0.7-1.3) Estimated GFR (Cockcroft-Gault) 86.4 Glucose Level 192 mg/dL (70-99) Calcium Level 8.3 mg/dL (8.5-10.1) Magnesium Level 2.0 mg/dL (1.8-2.4) Laboratory Tests Test 11/11/16 06:00 Sodium Level 139 mmol/L (136-145) Potassium Level 3.9 mmol/L (3.5-5.1) Chloride Level 101 mmol/L (98-107) Carbon Dioxide Level 26 mmol/L (21-32) Anion Gap 12 (6-14) Blood Urea Nitrogen 16 mg/dL (8-26) Creatinine 0.9 mg/dL (0.7-1.3) Estimated GFR (Cockcroft-Gault) 86.4 Glucose Level 192 mg/dL (70-99) Calcium Level 8.3 mg/dL (8.5-10.1) Magnesium Level 2.0 mg/dL (1.8-2.4) Medications Current Medications Sodium Chloride (Normal Saline Flush) 3 ml PRN DAILY PRN IV AFTER MEDS AND BLOOD DRAWS; Start 11/09/16 at 16:00 Acetaminophen/ Hydrocodone Bitart (Lortab 5/325) 1 tab PRN Q4HRS PRN PO MILD PAIN; Start 11/09/16 at 16:00 Furosemide (Lasix) 40 mg BID94 IVP Last administered on 11/10/16t 08:12; Start 11/09/16 at 16:30; Stop 11/10/16 at 13:21; Status DC Aspirin (Children'S Aspirin) 81 mg DAILYWBKFT PO Last administered on 08:14; Start 11/10/16 at 08:00; Stop 11/10/16 at 08:25; Status DC Atorvastatin Calcium (Lipitor) 40 mg QHS PO Last administered on 11/09/16 20: 35; Start 11/09/16 at 21:00; Stop 11/10/16 at 13:27; Status DC Carvedilol (Coreg) 12.5 mg BIDWMEALS PO Last administered on 11/11/16 07:55; Start 11/09/16 at 17:00 Lisinopril (Prinivil) 2.5 mg DAILY PO Last administered on 11/11/16 07:54; Start 11/10/16 at 09:00 Senna/Docusate Sodium (Senna Plus) 2 tab BID PO Last administered on 11/11/16 07:55; Start 11/09/16 at 21:00 Tamsulosin HCl (Flomax) 0.4 mg DAILY PO Last administered on 11/10/16 08:15; Start 11/10/16 at 09:00; Stop 11/10/16 at 10:35; Status DC Pantoprazole Sodium (Protonix) 40 mg DAILYAC PO Last administered on 11/11/16 07:53; Start 11/10/16 at 07:30 Fluticasone Propionate (Flonase) 2 spray DAILY NS Last administered on 07:55; Start 11/10/16 at 09:00 Potassium Chloride (Klor-Con) 20 meq DAILYWBKFT PO Last administered on 07:55; Start 11/10/16 at 08:00 Tamsulosin HCl (Flomax) 0.4 mg BID PO Last administered on 11/11/16 07:53; Start 11/10/16 at 21:00 Furosemide (Lasix) 40 mg DAILY IVP Last administered on 11/11/16 07:57; Start 11/11/16 at 09:00 Furosemide (Lasix) 40 mg 1X ONCE IVP Last administered on 11/10/16 14:03; Start 11/10/16 at 14:00; Stop 11/10/16 at 14:01; Status DC Albuterol Sulfate (Ventolin Neb Soln) 2.5 mg 1X ONCE NEB ; Start 11/10/16 at 13 :30; Stop 11/10/16 at 13:31; Status DC Atorvastatin Calcium (Lipitor) 20 mg QHS PO Last administered on 11/10/16t 20: 44; Start 11/10/16 at 21:00 Active Scripts Active Reported Corlanor (Ivabradine HCl) 5 Mg Tablet 5 Mg PO BID Tamsulosin Hcl 0.4 Mg Cap.er.24h 1 Cap PO DAILY Senna-Docusate Sodium Tablet (Sennosides/Docusate Sodium) 1 Each Tablet 2 Each PO BID Potassium Chloride 20 Meq Tablet.er 20 Meq PO DAILY Nasonex (Mometasone Furoate) 17 Gm [place].pump 2 [place] NS DAILY Lisinopril 2.5 Mg Tablet 1 Tab PO DAILY Furosemide 40 Mg Tablet 0.5 Tab PO DAILY Nexium Capsule (Esomeprazole Magnesium) 40 Mg Capsule.dr 1 Cap PO DAILY Carvedilol 12.5 Mg Tablet 1 Tab PO BID Atorvastatin Calcium 40 Mg Tablet 1 Tab PO DAILY Aspirin 81 Mg Tab.chew 1 Tab PO DAILY Vitals/I & O Vital Sign - Last 24 Hours 11/10/16 11/10/16 11/10/16 11/10/16 10:25 11:00 11:19 11:25 Temp 98.4 98.4 98.3 98.3 98.4 98.4 98.3 98.3 Pulse 94 94 96 98 Resp 20 20 20 20 B/P (MAP) 106/54 (71) 106/54 99/61 99/61 (74) Pulse Ox 95 O2 Delivery Room Air Room Air 11/10/16 11/10/16 11/10/16 11/10/16 12:26 12:27 13:31 13:50 Temp 98.0 98.0 98.6 98.6 98.0 98.0 98.6 98.6 Pulse 95 95 99 99 Resp 18 18 18 18 B/P (MAP) 113/67 113/67 (82) 97/59 97/59 (72) O2 Delivery Room Air Room Air 11/10/16 11/10/16 11/10/16 11/10/16 14:35 16:42 19:40 20:00 Temp 98.0 97.5 98.0 97.5 Pulse 97 97 81 Resp 20 20 B/P (MAP) 127/54 (78) 127/54 99/55 (70) Pulse Ox 98 O2 Delivery Room Air Room Air Room Air 11/10/16 11/11/16 11/11/16 11/11/16 23:14 03:32 07:00 07:54 Temp 97.9 97.9 98.1 97.9 97.9 98.1 Pulse 94 91 103 103 Resp 24 16 18 B/P (MAP) 127/63 (84) 111/63 (79) 103/59 (74) 103/59 Pulse Ox 93 91 94 O2 Delivery Room Air Room Air Room Air 11/11/16 11/11/16 07:55 08:00 Pulse 103 B/P (MAP) 103/59 O2 Delivery Room Air Intake and Output 11/10/16 11/10/16 11/11/16 15:00 23:00 07:00 Intake Total 110 ml 360 ml 480 ml Output Total 2200 ml 600 ml 475 ml Balance -2090 ml -240 ml 5 ml KIMI ALONZO MD November 11, 2016 08:27
--- NOTE | 2016-11-11 08:30 | PDOC ---
GENERAL General: vss and afebrile. awake and alert. still orthopneic but improving. O>>I. iron decreased and TIBC increased cw iron deficiency and will ask for GI eval. had colonoscopy last 3 years ago with finding of polyps. continue diuresis and recheck cbc this am after getting 2nd unit prbc's. Problems: VITAL SIGNS Vital Signs: Vital Signs Date Time Temp Pulse Resp B/P (MAP) Pulse Ox O2 Delivery O2 Flow Rate FiO2 11/11/16 08:00 Room Air 11/11/16 07:55 103 103/59 11/11/16 07:00 98.1 18 94 98.1 I & O I & O Intake and Output 11/11/16 07:00 Intake Total 950 ml Output Total 3275 ml Balance -2325 ml Intake Oral 940 ml Blood Product IV Normal Saline Flush 10 ml Output Urine Total 3275 ml # Bowel Movements 1 ALLERGIES Allergies: Allergies Coded Allergies Type Severity Reaction Last Updated Verified No Known Drug Allergies 11/09/16 No MEDS Medications: Current Medications Medications (Trade) Dose Ordered Sig/Edwina Start Time Stop Time Status Last Admin Dose Admin Acetaminophen/ Hydrocodone Bitart (Lortab 5/325) 1 tab PRN Q4HRS PRN 11/09/16 16:00 Albuterol Sulfate (Ventolin Neb Soln) 2.5 mg 1X ONCE 11/10/16 13:30 11/10/16 13:31 DC Aspirin (Children'S Aspirin) 81 mg DAILYWBKFT 11/10/16 08:00 11/10/16 08:25 DC 11/10/16 08:14 81 MG Atorvastatin Calcium (Lipitor) 20 mg QHS 11/10/16 21:00 11/10/16 20:44 20 MG Carvedilol (Coreg) 12.5 mg BIDWMEALS 11/09/16 17:00 11/11/16 07:55 12.5 MG Fluticasone Propionate (Flonase) 2 spray DAILY 11/10/16 09:00 11/11/16 07:55 2 SPRAY Furosemide (Lasix) 40 mg 1X ONCE 11/10/16 14:00 11/10/16 14:01 DC 11/10/16 14:03 40 MG Lisinopril (Prinivil) 2.5 mg DAILY 11/10/16 09:00 11/11/16 07:54 2.5 MG Pantoprazole Sodium (Protonix) 40 mg DAILYAC 11/10/16 07:30 11/11/16 07:53 40 MG Potassium Chloride (Klor-Con) 20 meq DAILYWBKFT 11/10/16 08:00 11/11/16 07:55 20 MEQ Senna/Docusate Sodium (Senna Plus) 2 tab BID 11/09/16 21:00 11/11/16 07:55 2 TAB Sodium Chloride (Normal Saline Flush) 3 ml PRN DAILY PRN 11/09/16 16:00 Tamsulosin HCl (Flomax) 0.4 mg BID 11/10/16 21:00 11/11/16 07:53 0.4 MG LAB Lab: Laboratory Tests Test 11/11/16 06:00 Sodium Level 139 mmol/L (136-145) Potassium Level 3.9 mmol/L (3.5-5.1) Chloride Level 101 mmol/L (98-107) Carbon Dioxide Level 26 mmol/L (21-32) Anion Gap 12 (6-14) Blood Urea Nitrogen 16 mg/dL (8-26) Creatinine 0.9 mg/dL (0.7-1.3) Estimated GFR (Cockcroft-Gault) 86.4 Glucose Level 192 mg/dL (70-99) Calcium Level 8.3 mg/dL (8.5-10.1) Magnesium Level 2.0 mg/dL (1.8-2.4) MAGGIE FRIAS MD November 11, 2016 08:30
[2016-11-11 08:52] LABS: BASO # 0.1 x10^3/uL (0.0-0.2); BASO % 1 % (0-3); EOS % 1 % (0-3); HEMATOCRIT 26.4 % (39.0-53.0); HEMOGLOBIN 7.6 g/dL (13.0-17.5); LYMPH # 2.6 x10^3/uL (1.0-4.8); LYMPH % 17 % (24-48); MEAN CORPUSCULAR HEMOGLOBIN 18 pg (25-35); MEAN CORPUSCULAR HGB CONC 29 g/dL (31-37); MONO % 8 % (0-9); NEUT % 73 % (31-73); PLATELET COUNT 452 x10^3/uL (140-400); RED BLOOD COUNT 4.23 x10^6/uL (4.30-5.70); RED CELL DISTRIBUTION WIDTH 29.6 % (11.5-14.5); WHITE BLOOD COUNT 14.8 x10^3/uL (4.0-11.0)
[2016-11-11 08:57] LABS: MEAN CORPUSCULAR VOLUME 59 fL (79-100)
[2016-11-11] MEDS ORDERED: FUROSEMIDE 40 MG/4 ML VIAL. IVP SCH (09:00)
--- NOTE | 2016-11-11 10:57 | PDOC2 ---
GI CONSULT Reason For Consult: DIANNE HPI: HPI: 61 y/o male, admitted w/ SOA and LE edema, followed by cardiology and urology for CHF and urinary retention. GI asked to see this morning for DIANNE. Denies h/ o this. Hgb on admit was 6, now up to 7.6 s/p transfusion 2 units pRBCs. Currently denies obvious bleeding including hematuria, hematochezia, melena, or hematemesis. However, 3-4 months ago noted bright red blood mixed w/ stool x 2 days, no recurrence. Previous EGD and colonoscopy by Dr. Hernando Herrmann in 12/2012 (for GERD and CRC screening) showed reflux (no dysplasia), an adenomatous colon polyp, and a hyperplastic polyp. Takes esomeprazole QD w/ fair control of GERD symptoms, still needs antacids PRN. No n/v. Some bloating after eating occasionally. No weight loss (in fact has gained weight/fluid retention). Occasionally has a "dull cramp" int he periumbilical region, worse w/ acidic foods and attributed to reflux. Previously took NSAIDs, quit per university professor' s recommendation a couple years ago, now only uses acetaminophen. Usually has 1 stool daily, some alternating loose stools and constipation, untreated. PMH: PMH: CHF, AICD, CAD s/p CABG x 3, COPD, LORENA, HTN, HLD, GERD, adenomatous colon polyp , BPH, allergic rhinitis, OA, bilateral knee arthroscopies, umbilical hernia repair, vasectomy/reversal, tonsillectomy, lipoma removal from forehead, eye surgery FH: Family History: Cancer (grandfather - ?colon, cousin - pancreatic), Other ( adopted, DVT/PE) Social History: Smoke: <1 pack per day (previously 2 ppd) ALCOHOL: rare Drugs: None ROS: GEN: Denies fevers, chills, sweats HEENT: Denies blurred vision, sore throat CV: Denies chest pain RESP: +SOA GI: Per HPI : +urinary retention ENDO: +weight gain NEURO: Denies confusion, dizziness MSK: Denies weakness, joint pain/swelling SKIN: Denies jaundice, pruritus Vitals: Vitals: Vital Signs Date Time Temp Pulse Resp B/P (MAP) Pulse Ox O2 Delivery O2 Flow Rate FiO2 11/11/16 08:00 Room Air 11/11/16 07:55 103 103/59 11/11/16 07:00 98.1 18 94 98.1 Labs: Labs: Laboratory Tests Test 11/11/16 06:00 White Blood Count 14.8 x10^3/uL (4.0-11.0) Red Blood Count 4.23 x10^6/uL (4.30-5.70) Hemoglobin 7.6 g/dL (13.0-17.5) Hematocrit 26.4 % (39.0-53.0) Mean Corpuscular Volume 59 fL (79-100) Mean Corpuscular Hemoglobin 18 pg (25-35) Mean Corpuscular Hemoglobin Concent 29 g/dL (31-37) Red Cell Distribution Width 29.6 % (11.5-14.5) Platelet Count 452 x10^3/uL (140-400) Neutrophils (%) (Auto) 73 % (31-73) Lymphocytes (%) (Auto) 17 % (24-48) Monocytes (%) (Auto) 8 % (0-9) Eosinophils (%) (Auto) 1 % (0-3) Basophils (%) (Auto) 1 % (0-3) Neutrophils # (Auto) 10.8 x10^3uL (1.8-7.7) Lymphocytes # (Auto) 2.6 x10^3/uL (1.0-4.8) Monocytes # (Auto) 1.1 x10^3/uL (0.0-1.1) Eosinophils # (Auto) 0.2 x10^3/uL (0.0-0.7) Basophils # (Auto) 0.1 x10^3/uL (0.0-0.2) Sodium Level 139 mmol/L (136-145) Potassium Level 3.9 mmol/L (3.5-5.1) Chloride Level 101 mmol/L (98-107) Carbon Dioxide Level 26 mmol/L (21-32) Anion Gap 12 (6-14) Blood Urea Nitrogen 16 mg/dL (8-26) Creatinine 0.9 mg/dL (0.7-1.3) Estimated GFR (Cockcroft-Gault) 86.4 Glucose Level 192 mg/dL (70-99) Calcium Level 8.3 mg/dL (8.5-10.1) Magnesium Level 2.0 mg/dL (1.8-2.4) Allergies: Coded Allergies: No Known Drug Allergies (Unverified , 11/09/16) Medications: Current Medications Medications (Trade) Dose Ordered Sig/Edwina Route PRN Reason Start Time Stop Time Status Last Admin Dose Admin Tamsulosin HCl (Flomax) 0.4 mg BID PO 11/10/16 21:00 11/11/16 07:53 Furosemide (Lasix) 40 mg DAILY IVP 11/11/16 09:00 11/11/16 07:57 Furosemide (Lasix) 40 mg 1X ONCE IVP 11/10/16 14:00 11/10/16 14:01 DC 11/10/16 14:03 Atorvastatin Calcium (Lipitor) 20 mg QHS PO 11/10/16 21:00 11/10/16 20:44 Imaging: Imaging: CXR IMPRESSION: 1. Mild cardiomegaly. 2. No acute cardiopulmonary abnormality is detected. Renal US IMPRESSION: Right renal cyst. No evidence of hydronephrosis seen associated with either kidney. PE: GEN: NAD,a bit pale HEENT: Atraumatic, PERRL LUNGS: decreased HEART: RRR ABD: NABS, S/ND/NT EXTREMITY: BLE edema SKIN: No rashes, no jaundice NEURO/PSYCH: A & O 3 A/P: A/P: DIANNE -seems new diagnosis, Hgb from 8 yo 7.6 s/p transfusion 2 units pRBCs -3 months ago had red blood mixed w/ stool, currently denies bleeding -last EGD and colonoscopy in 2012 GERD -on PPI QD, also antacids CRC screen, h/o adenomatous polyp CHF Urinary retention -- Continue PPI, plan for outpatient scopes. JONAS NELSON November 11, 2016 10:57
[2016-11-11 11:10] VITALS: BP 109/58
--- NOTE | 2016-11-11 12:05 | PDOC ---
CARDIO Progress Notes Date and Time Date of Service 11/11/2016 Time of Evaluation 1150 Subjective Subjective: No Chest Pain, No shortness of breath, No Palpitations, No Dizziness Vitals Vitals Vital Signs Date Time Temp Pulse Resp B/P (MAP) Pulse Ox O2 Delivery O2 Flow Rate FiO2 11/11/16 11:10 97.7 93 18 109/58 (75) 95 Room Air 97.7 Weight Weight [ ] Input and Output Intake and Output Intake and Output 11/11/16 07:00 Intake Total 950 ml Output Total 3275 ml Balance -2325 ml Intake Oral 940 ml Blood Product IV Normal Saline Flush 10 ml Output Urine Total 3275 ml # Bowel Movements 1 Laboratory Labs Laboratory Tests Test 11/11/16 06:00 White Blood Count 14.8 x10^3/uL (4.0-11.0) Red Blood Count 4.23 x10^6/uL (4.30-5.70) Hemoglobin 7.6 g/dL (13.0-17.5) Hematocrit 26.4 % (39.0-53.0) Mean Corpuscular Volume 59 fL (79-100) Mean Corpuscular Hemoglobin 18 pg (25-35) Mean Corpuscular Hemoglobin Concent 29 g/dL (31-37) Red Cell Distribution Width 29.6 % (11.5-14.5) Platelet Count 452 x10^3/uL (140-400) Neutrophils (%) (Auto) 73 % (31-73) Lymphocytes (%) (Auto) 17 % (24-48) Monocytes (%) (Auto) 8 % (0-9) Eosinophils (%) (Auto) 1 % (0-3) Basophils (%) (Auto) 1 % (0-3) Neutrophils # (Auto) 10.8 x10^3uL (1.8-7.7) Lymphocytes # (Auto) 2.6 x10^3/uL (1.0-4.8) Monocytes # (Auto) 1.1 x10^3/uL (0.0-1.1) Eosinophils # (Auto) 0.2 x10^3/uL (0.0-0.7) Basophils # (Auto) 0.1 x10^3/uL (0.0-0.2) Sodium Level 139 mmol/L (136-145) Potassium Level 3.9 mmol/L (3.5-5.1) Chloride Level 101 mmol/L (98-107) Carbon Dioxide Level 26 mmol/L (21-32) Anion Gap 12 (6-14) Blood Urea Nitrogen 16 mg/dL (8-26) Creatinine 0.9 mg/dL (0.7-1.3) Estimated GFR (Cockcroft-Gault) 86.4 Glucose Level 192 mg/dL (70-99) Calcium Level 8.3 mg/dL (8.5-10.1) Magnesium Level 2.0 mg/dL (1.8-2.4) Physical Exam HEENT: Neck Supple W Full Motion Chest: Symmetric LUNGS: Clear to Auscultation Heart: S1S2, RRR (SR) Abdomen: Soft N/T, Other (truncal obesity) Extremities: No Edema, No Calf Tenderness Neurology: alert, oriented, follow commands Assessment Assessment 1. Acute on chronic diastolic/systolic CHF: Compensated. TTE 40-45% with global hypokinesis and mod diastolic dysfunction. 2. Acute anemia: Possible GI bleed. Hgb 7.6 from 6.0 after 2U of PRBC. Contributing to CHF. 3. ICM: AICD Medtronic in place (VVI-ICD). normal device function per interrogation with occasional brief NSVT. Low setting rate at 40. V paced <0.1% . Past EF at 35% 4. CAD: CABG x3 02/04/2014 CABG DELUCA to LAD, reverse SVG to PDA and D1. Remains CP free. 5. Asymptomatic NSVT: 14 beat episode x1 today. Mg and K normal. HR baseline so far 80-90s likely reactive to anemia. 6. AECOPD: Initially diagnosed in 2013. better today. defer to PCP 7. Strong suspicion of LORENA: positive for apnea and snoring per with physical features. 8. HTN: controlled 9. HLP: HDL low otherwise, supra-therapeutic lipid levels 10. DM2: new, A1C 6.5, per PCP Recommendations 1. Will convert coreg to metoprolol for better rhythm control, will uptitrate per response. Goal HR 70. 2. Continue secondary prevention 3. 2 L FR, smoking cessation 4. Will transition to bumex po tomorrow, better bioavailability vs lasix. 5. Will need LORENA workup as outpt 6. GI workup pending 7. Will need extra IV lasix if any further transfusion. 8. Repeat EKG and will note QTc. CELESTINA SO APRN November 11, 2016 12:05
--- NOTE | 2016-11-11 13:28 | EKG ---
[facility] [address] [place] [address] Test Date: 2016-11-11 Test Time: 12:21:36 Pat Name: DARIUS REA Department: Room: 646 1 Gender: M [employer] Supervisor: SINDHU : 1955 Requested By: CELESTINA SO Order Number: [id number] Reading MD: Oz Kilgore Measurements Intervals [place] Rate: 95 P: 48 MT: 184 QRS: 112 QRSD: 100 T: 32 QT: 368 QTc: 466 Interpretive Statements SINUS RHYTHM VENTRICULAR PREMATURE COMPLEX(ES) ABNORMAL RIGHT AXIS DEVIATION Electronically Signed On 11-15-2016 9:44:14 CDT by Oz Kilgore
[2016-11-11 14:07] LABS: NEG OBC FOB NEG; POS OBC FOB POS
[2016-11-11 14:18] VITALS: BP 111/61
[2016-11-11 19:35] VITALS: BP 108/63
[2016-11-11] MEDS: METOPROLOL TART IMMED RELEASE 50 MG TABLET. PO SCH (20:14)
[2016-11-11] MEDS: ATORVASTATIN CALCIUM 20 MG TABLET PO SCH (20:14)
[2016-11-11 23:06] VITALS: BP 100/54
[2016-11-12 03:40] VITALS: BP 136/77
[2016-11-12 05:40] LABS: BASO # 0.1 x10^3/uL (0.0-0.2); BASO % 1 % (0-3); EOS % 2 % (0-3); HEMATOCRIT 26.5 % (39.0-53.0); LYMPH % 21 % (24-48); MEAN CORPUSCULAR HEMOGLOBIN 19 pg (25-35); MEAN CORPUSCULAR HGB CONC 30 g/dL (31-37); MEAN CORPUSCULAR VOLUME 62 fL (79-100); MONO % 9 % (0-9); NEUT % 68 % (31-73); PLATELET COUNT 505 x10^3/uL (140-400); RED BLOOD COUNT 4.28 x10^6/uL (4.30-5.70); RED CELL DISTRIBUTION WIDTH 30.8 % (11.5-14.5); WHITE BLOOD COUNT 14.7 x10^3/uL (4.0-11.0)
[2016-11-12 05:45] LABS: CALCIUM 8.7 mg/dL (8.5-10.1); CREATININE 0.8 mg/dL (0.7-1.3); GFR 98.9
[2016-11-12 07:00] VITALS: BP 116/57
[2016-11-12] MEDS: SENNOSIDES/DOCUSATE 8.6/50MG TABLET. PO SCH (08:20)
[2016-11-12] MEDS: POTASSIUM CHLORIDE 20 MEQ TABLET.ER. PO SCH (08:20)
[2016-11-12] MEDS: TAMSULOSIN 0.4 MG CAP.ER.24H. PO SCH (08:20)
[2016-11-12] MEDS: PANTOPRAZOLE 40 MG TABLET.DR. PO SCH (08:20)
[2016-11-12] MEDS: LISINOPRIL 2.5 MG TABLET PO SCH (08:20)
[2016-11-12] MEDS: METOPROLOL TART IMMED RELEASE 50 MG TABLET. PO SCH (08:21)
[2016-11-12] MEDS ORDERED: BUMETANIDE 1 MG TABLET. PO SCH (09:00)
[2016-11-12] MEDS: FLUTICASONE 50MCG/NASAL SPRAY 16GM BOTTLE. NS SCH (09:00)
--- NOTE | 2016-11-12 09:38 | DISCH ---
DISCHARGE INSTRUCTIONS Condition on Discharge Condition on Discharge: Stable Activity After Discharge Activity Instructions for Disc: No restrictions Diet after Discharge Diet after Discharge: Low Sodium 4 gm Follow-Up Follow up with: MARIA FERNANDA Smith MD November 12, 2016 09:38
--- NOTE | 2016-11-12 09:44 | PDOC ---
Provider Note Provider Note [id number] MARIA FERNANDA BUTT MD November 12, 2016 09:44
[2016-11-12 10:52] VITALS: BP 94/55
--- NOTE | 2016-11-12 10:54 | DS ---
DATE OF DISCHARGE: 11/12/2016 HOSPITAL SUMMARY: A 61-year-old white male with a history of congestive heart failure, came in with urinary retention despite being on Lasix. Hemoglobin on admission was 6, then came up to 8.0 at the time of discharge. MCV low at 58. White count mildly elevated, platelets were mildly elevated. Chemistry profile was unremarkable with a very mild elevation in hemoglobin A1c of 6.5. TSH was normal and urine showed no sign of infection. Chest x-ray showed mild congestive heart failure only and renal ultrasound showed no hydronephrosis and a small renal cyst. The Mcginnis was kept in place. He was given some IV fluids and diuresis and GI saw him in consultation regarding the microcytic anemia. Plan is do likely panendoscopy as an outpatient as his last colonoscopy and EGD was in 2012 and he does take daily aspirin. He was given 2 units of packed red blood cells while in the hospital. He is comfortable to be followed as an outpatient at this point. FINAL DIAGNOSES: 1. Microcytic anemia, likely secondary to occult gastrointestinal bleeding, etiology undetermined. 2. Mild congestive heart failure with decreased ejection fraction, ejection fraction 45%. 3. Urinary retention secondary to presumed benign prostatic hypertrophy. 4. Prediabetes per hemoglobin A1c. OPERATIONS, PROCEDURES, COMPLICATIONS: None. CONSULTATIONS: Dr. Lockett's group, Dr. Johnson and Dr. Gonzalez. DISPOSITION: Continue all home meds. He will go home with a Mcginnis catheter in place and be seen by Dr. Johnson in the office to have that removed and see if he needs further cystoscopy. GI will contact him regarding EGD and colonoscopy and he has been told to remain on aspirin as greater benefit than risk at this point as he does not appear to be actively bleeding. Follow up with Dr. Rojas in 1 week regarding hemoglobin and prediabetes. PROGNOSIS: Good. MARIA FERNANDA BUTT MD DR: KEITH/thuan JOB#: [id number] / [id number]
[2016-11-12 15:00] VITALS: BP 99/64
== END 2016-11-12 18:00 | disposition home or self-care (01) | DRG 377 ==
LOC: 6 SOUTH 14:17
PROVIDERS: ADMIT Family Medicine; ATTEND Family Medicine
PROC: 30233N1 Transfusion of Nonautologous Red Blood Cells into Peripheral Vein, Percutaneous Approach (ICD-10-PCS; principal; 2016-11-09)
DX: K92.2 Gastrointestinal hemorrhage, unspecified (principal); I50.43 Acute on chronic combined systolic (congestive) and diastolic (congestive) heart failure; J44.1 Chronic obstructive pulmonary disease with (acute) exacerbation; I47.2 Ventricular tachycardia; I11.0 Hypertensive heart disease with heart failure; I25.5 Ischemic cardiomyopathy; I25.10 Atherosclerotic heart disease of native coronary artery without angina pectoris; F17.210 Nicotine dependence, cigarettes, uncomplicated; M54.5 Low back pain; M19.90 Unspecified osteoarthritis, unspecified site; G47.33 Obstructive sleep apnea (adult) (pediatric); E11.9 Type 2 diabetes mellitus without complications; D50.9 Iron deficiency anemia, unspecified; K59.00 Constipation, unspecified; R33.8 Other retention of urine; N40.1 Benign prostatic hyperplasia with lower urinary tract symptoms; K21.9 Gastro-esophageal reflux disease without esophagitis; E78.5 Hyperlipidemia, unspecified; Z83.3 Family history of diabetes mellitus; Z95.810 Presence of automatic (implantable) cardiac defibrillator; Z95.1 Presence of aortocoronary bypass graft; Z80.9 Family history of malignant neoplasm, unspecified; Z79.899 Other long term (current) drug therapy; Z79.1 Long term (current) use of non-steroidal anti-inflammatories (NSAID); Z79.2 Long term (current) use of antibiotics; Z79.82 Long term (current) use of aspirin; Z71.6 Tobacco abuse counseling
CPT/HCPCS: 36415; 71020; 76770; 80048; 80053; 80061; 81001; 82274; 83036; 83540; 83550; 83735; 83880; 84443; 84484; 85007; 85014; 85018; 85027; 86850; 86900; 86901; 86920; 93005; 93306; A4314; J1940; P9016

== ENCOUNTER → 2016-11-30 | Day surgery (SDC) | payer BC ==
[~2016-11-30] MED LIST: ASPI-630 PO; ATOR40TA59 PO; CARV12.52 PO; ESOM40CA PO; FURO40TA4 PO; IV RINGERS,LACTATED 1000ML 1,000 ML IV SCH; IVAB5TAB PO; LISI2.5T PO; MOME17SP NS; POTA20TA82 PO; PROPOFOL 20 ML IV ONE; PROPOFOL 40 ML IV ONE; SENN1TAB7 PO; TAMS0.4C2 PO
[2016-11-30 09:20] VITALS: BP 163/79
[2016-11-30 09:53] LABS: BASO # 0.1 x10^3/uL (0.0-0.2); BASO % 1 % (0-3); EOS % 2 % (0-3); HEMATOCRIT 28.6 % (39.0-53.0); HEMOGLOBIN 8.8 g/dL (13.0-17.5); LYMPH # 3.3 x10^3/uL (1.0-4.8); LYMPH % 24 % (24-48); MEAN CORPUSCULAR HEMOGLOBIN 19 pg (25-35); MEAN CORPUSCULAR HGB CONC 31 g/dL (31-37); MEAN CORPUSCULAR VOLUME 63 fL (79-100); MONO % 7 % (0-9); NEUT % 66 % (31-73); PLATELET COUNT 487 x10^3/uL (140-400); RED BLOOD COUNT 4.55 x10^6/uL (4.30-5.70); RED CELL DISTRIBUTION WIDTH 29.7 % (11.5-14.5); WHITE BLOOD COUNT 13.6 x10^3/uL (4.0-11.0)
[2016-11-30 10:14] LABS: ANISOCYTOSIS MOD; MICROCYTOSIS SLIGHT; PLT ESTIMATE INCREASED (ADEQUATE)
--- NOTE | 2016-11-30 23:50 | HP ---
ADMIT DATE: 11/30/2016 REASON FOR CONSULTATION: Iron-deficiency anemia. REFERRING PHYSICIAN: Dr. Scooby Rojas HISTORY OF PRESENT ILLNESS: This is a 61-year-old male whose past medical history is significant for organic heart disease, status post CABG, ischemic cardiomyopathy, arthritis, status post AICD placement, systolic heart failure as well as BPH with indwelling Mcginnis catheter ____ iron deficiency anemia. The patient denies any melena and/or hematochezia, states he has had dysphagia for solids and liquids and there has been no change in his weight since his diuresis for his heart failure. Previous upper endoscopy and colonoscopy did reveal an adenomatous polyp in 2012. He is here today for repeat interval evaluation. FAMILY HISTORY: Negative for colon cancer. Denies any change in bowel habits, diarrhea, constipation or visible bleeding. PAST MEDICAL HISTORY: Organic heart disease, ischemic cardiomyopathy, arthritis, status post AICD placement, congestive heart failure and BPH. MEDICATIONS: Include aspirin, Lipitor, carvedilol, Nexium, furosemide, lisinopril, potassium chloride, Senokot and Flomax. SOCIAL HISTORY: He is a smoker, does not drink. FAMILY HISTORY: Noncontributory. REVIEW OF SYSTEMS: As per above. PHYSICAL EXAMINATION: GENERAL: Reveals a well-nourished, well-developed male who is alert and is cooperative. He is no acute distress. VITAL SIGNS: Temperature 98.4, pulse 94, respirations 20. HEENT: Normocephalic and atraumatic head. Pupils and extraocular movements not tested. Sclerae anicteric. NECK: Supple. LUNGS: Clear. CARDIOVASCULAR: Reveals an S1, S2 without S3, S4 or appreciable murmur. ABDOMEN: Reveals soft abdomen, normoactive bowel sounds without appreciable hepatosplenomegaly. EXTREMITIES: Reveals no cyanosis, clubbing or edema, indwelling Mcginnis catheter is noted. IMPRESSION: Iron deficiency anemia, etiology is to be determined. Peptic ulcer disease, Russell's, arteriovenous malformation, irritable bowel disease, colon or gastric cancer certainly in the differential, therefore, recommend upper endoscopy and colonoscopy. If these are unrevealing, then further consideration to small bowel series and capsule test would be pursued if the patient is unable to maintain his blood counts and iron supplement. I would like to thank Dr. Rojas for allowing us to consult and participate in the patient's care. PIETER ORTIZ MD DR: Tk JOB#: [id number] / [id number]
--- NOTE | 2016-12-01 16:56 | PATHOLOGY ---
PATHOLOGY REPORT * * * * * * * * FINAL DIAGNOSIS: Colon biopsy, transverse colon polyps: - Tubular adenomas (2). COMMENT: There is no high grade dysplasia or evidence of malignancy. (JPM:mmmabel; d/t: 12/01/2016) REPORT ELECTRONICALLY SIGNED BY: Alek Davidson M.D. DATE/TIME: 12/01/2016 16:55 * * * * * * * * GROSS PATHOLOGY: Received in formalin labeled "Darius Rea, transverse colon polyps," are two pieces of polypoid griffin soft tissue measuring 1.2 x 0.8 x 0.7 and 1.0 x 0.7 x 0.5 cm in maximum dimensions. The margin is inked and the tissue is sectioned perpendicular to the margin and submitted in its entirety in cassette A1. The smaller polyp is differentially inked. (JPM; 11/30/16) INITIAL CPT CODE(S): A; 54292 Professional services performed by [facility] [place] [address] Technical services performed by [facility] at [address] [place] [address]. SPECIMEN(S) RECEIVED: A.Transverse colon polyps CLINICAL HISTORY: Anemia PATIENT: DARIUS REA /AGE: 5 1955 (Age: 61) PATIENT #: [id number] ALT CASE #: SPECIMEN COLLECTION DATE: 11/30/2016 SPECIMEN RECEIVED DATE: 11/30/2016 [facility] - [address] [place] [address] - PHONE: [phone] * * * END OF REPORT * * *
== END | disposition home or self-care (01) ==
LOC: ENDOS 06:47
PROVIDERS: ATTEND Internal Medicine Gastroenterology
DX: D12.3 Benign neoplasm of transverse colon (principal); D50.9 Iron deficiency anemia, unspecified; K64.1 Second degree hemorrhoids; K57.30 Diverticulosis of large intestine without perforation or abscess without bleeding; K29.50 Unspecified chronic gastritis without bleeding; E78.00 Pure hypercholesterolemia, unspecified; I10 Essential (primary) hypertension; I50.9 Heart failure, unspecified; E66.9 Obesity, unspecified; F17.200 Nicotine dependence, unspecified, uncomplicated; M19.90 Unspecified osteoarthritis, unspecified site; Z68.43 Body mass index [BMI] 50.0-59.9, adult; Z72.0 Tobacco use; Z87.39 Personal history of other diseases of the musculoskeletal system and connective tissue
CPT/HCPCS: 36415; 43235; 45385; 85007; 85027; 88305; J2704